=== PATIENT | male | born 1980 | race African-American/Black ===

== ENCOUNTER 2020-05-19 14:58 | Emergency (ER) | payer OTHER, SELFPAY ==
[2020-05-19 15:46] LABS: ALT (SGPT) 17 U/L (8-55); AST (SGOT) 13 U/L (5-34); Albumin 4.4 g/dL (3.5-5.0); Alkaline Phosphatase 66 U/L (40-110); Anion Gap 24 mmol/L (10-20); BUN (Urea Nitrogen) 74 mg/dL (8.9-20.6); Bilirubin, Total 0.6 mg/dL (0.2-1.2); Calc. Creatinine Clearance 0 mL/min (70-130); Calcium 9.9 mg/dL (7.8-10.44); Carbon Dioxide 26 mmol/L (22-29); Chloride 98 mmol/L (98-107); Glucose 83 mg/dL (70-105); Protein, Total 8.4 g/dL (6.0-8.3); Sodium 143 mmol/L (136-145)
[2020-05-19] MEDS ORDERED: Nitroglycerin 0.4 MG TAB 1 EACH ONE (15:47)
[2020-05-19] MEDS ORDERED: Metoprolol Tartrate 5 MG/5 ML VIAL ONE (15:47)
[2020-05-19] MEDS ORDERED: Aspirin Chewable 81 MG TAB ONE (15:47)
[2020-05-19 15:54] LABS: Hemoglobin 9.7 g/dL (14.0-18.0); Mean Corpuscular Hemoglobin 28.9 pg (27.0-31.0); Mean Corpuscular Volume 96.3 fL (78.0-98.0); Platelet Count 187 thou/uL (130-400); RBC Distribution Width 15.2 % (11.5-14.5); Red Blood Cell (RBC) Count 3.36 mill/uL (4.70-6.10); White Blood Cell (WBC) Count 8.3 thou/uL (4.8-10.8)
[2020-05-19 16:06] LABS: #Basophils 0.1 thou/uL (0.0-0.2); #Eosinphils 0.7 thou/uL (0.0-0.7); #Lymphocytes 0.9 thou/uL (1.20-3.40); #Monocytes 0.4 thou/uL (0.11-0.59); #Neutrophils 6.1 thou/uL (1.40-6.50); %Basophils 1.3 % (0.0-1.0); %Eosinophils 8.8 % (0.0-10.0); %Lymphocytes 11.2 % (21.0-51.0); %Monocytes 5.2 % (0.0-10.0); %Neutrophils 73.5 % (42.0-75.0); Anisocytosis SLIGHT = 6-15 cells (100X) (0-5/hpf); Hypochromia SLIGHT = 6-15 cells (100X) (0-5/hpf); MDiff Complete? YES; Ovalocytes SLIGHT = 2-5 cells (100X) (0-1/hpf)
[2020-05-19 16:38] LABS: CKMB 5.4 ng/mL (0-6.6)
--- NOTE | 2020-05-19 18:53 | RAD ---
PORTABLE CHEST: Date: 05-19-2020 An AP portable film at 1539 is compared with an 03-01-18 study. FINDINGS: The heart is mildly enlarged, perhaps a little more so than before. Nevertheless, there are no conges tive findings or large pleural effusions. Slight blunting of the left costophrenic angle may likely b e related to positioning of the patient. There is no vascular congestion or edema. Slight haziness ov er the right lower chest is felt to be due to positioning as well. IMPRESSION: Mild cardiomegaly but no acute findings otherwise. POS: HOME
== END 2020-05-19 17:10 | disposition left against medical advice (07) ==
LOC: BURERS 14:58
DX: I10 Essential (primary) hypertension (principal); R77.8 Other specified abnormalities of plasma proteins; F17.210 Nicotine dependence, cigarettes, uncomplicated
CPT/HCPCS: 71045; 80053; 82553; 84484; 85025; 93005; 94760; 96374